=== PATIENT | female | born 1995 | race Caucasian/White ===

== ENCOUNTER 2022-08-27 06:56 | Outpatient (CLI) | payer OTHER, SELFPAY ==
[2022-08-27 07:35] VITALS: BP 112/68; PULSE 82
--- NOTE | 2022-08-27 07:50 | PC.NURSE ---
Dr. Morrison at bedside. Vertex presentation found per ultrasound. No external version done. February D/C home.
== END 2022-08-27 08:55 | disposition home or self-care (01) ==
LOC: ANHOBOP 07:03 → ANHOBPP 07:03
PROVIDERS: Visit Provider Obstetrics & Gynecology
DX: O32.1XX0 Maternal care for breech presentation, not applicable or unspecified (principal); Z3A.00 Weeks of gestation of pregnancy not specified
CPT/HCPCS: 59025; 99199

== ENCOUNTER 2022-09-08 05:42 | Inpatient (IN) | payer OTHER, SELFPAY ==
[2022-09-08] VITALS (164 sets, daily range): BP systolic 100–184; BP diastolic 45–112; PULSE 68–124; TEMP 36.2–36.6; O2SAT 97–100; BMI 42.1
--- OUTSIDE RECORDS SUMMARY | 2022-09-08 05:46 | XMS_ITS | Encounter Summary ---
:1995 Author Reason for Visit OB visit Assessment and Plan 1. Routine care 2. Transverse lie Discussion Note: None recorded.Patient educational handouts: No information available. Plan of Care Reminders Provider Appointments None recorded. ? ? Lab None recorded. ? ? Referral None recorded. ? ? Procedures None recorded. ? ? Surgeries None recorded. ? ? Imaging None recorded. ? ? Medications Name Start Date ? ? Asprin Ec Low Dose 81 mg tablet,delayed release ? Take 1 tablet every day by oral route. fluoxetine 20 mg capsule ? TAKE 1 CAPSULE BY MOUTH EVERY DAY FOR 90 DAYS 28 mg iron-800 mcg tablet ? Medications Administered None recorded. Vitals Height Weight BMI Blood Pressure 5 ft 3.75 in 237 lbs 41 kg/m2 111/72 mm[Hg] Results Lab Results None recorded. Allergies Code Code System Name Reaction Severity Onset Penicillin Angioedema Mild to Moderate ? Problems Name Status Onset Date Source ? Active 03/10/2022 ? Unstable Lie Active ? ? Polyhydramnios Active ? ? Procedures Date Name Performed by ? 10/24/2016 Extraction of [place] Tooth Information n ot available 06/30/2022 US, Obstetric, Follow-up [place] [address] [place] [address] (Work [address]) 07/14/2022 US, Obstetric, Limited [place] [address]
--- OUTSIDE RECORDS SUMMARY | 2022-09-08 05:46 | XMS_ITS | Encounter Summary ---
:1995 Author Reason for Visit None recorded. Assessment and Plan 1. Polyhydramnios ? US, obstetric, limited Discussion Note: None recorded.Patient educational handouts: No information available. Plan of Care Reminders Provider Appointments None recorded. ? ? Lab None recorded. ? ? Referral None recorded. ? ? Procedures None recorded. ? ? Surgeries None recorded. ? ? Imaging US, Obstetric, Limited 07/14/2022 Medina joiner Medications Name Start Date ? ? Asprin Ec Low Dose 81 mg tablet,delayed release ? Take 1 tablet every day by oral route. fluoxetine 20 mg capsule ? TAKE 1 CAPSULE BY MOUTH EVERY DAY FOR 90 DAYS 28 mg iron-800 mcg tablet ? Medications Administered None recorded. Vitals None recorded. Results Lab Results None recorded. Allergies Code Code System Name Reaction Severity Onset Penicillin Angioedema Mild to Moderate ? Problems Name Status Onset Date Source ? Active 03/10/2022 ? Unstable Lie Active ? ? Polyhydramnios Active ? ? Procedures Date Name Performed by ? 10/24/2016 Extraction of [place] Tooth Information n ot available 06/30/2022 US, Obstetric, Follow-up [place] [address] [place] [address] (Work [address]) 07/14/2022 US, Obstetric, Limited [place] [address] [place] [address]
--- OUTSIDE RECORDS SUMMARY | 2022-09-08 05:46 | XMS_ITS | Encounter Summary ---
:1995 Author Reason for Visit None recorded. Assessment and Plan 1. Pre-existing maternal disease compli cating ? US, obstetric, follow-up Discussion Note: None recorded.Patient educational handouts: No information available. Plan of Care Reminders Provider Appointments None recorded. ? ? Lab None recorded. ? ? Referral None recorded. ? ? Procedures None recorded. ? ? Surgeries None recorded. ? ? Imaging US, Obstetric, Follow-up 07/27/2022 Neema cordova Medications Name Start Date ? ? Asprin [...] Name Performed by ? 10/24/2016 Extraction of [place] Tooth Information n ot available 06/30/2022 , Obstetric, Follow-up [place] [address] [place] [address] (Work [address]) 07/14/2022 , Obstetric, Limited [place] [address] [place] [address]
--- OUTSIDE RECORDS SUMMARY | 2022-09-08 05:46 | XMS_ITS ---
:1995 Author Care Team Providers Name Role Phone Cindy Johns Primary Care Provider Unavailable Allergies Code Code System Name Reaction Severity Status Onset Penicillin Angioedema Mild to Moderate Active ? Medications Name Status Start Date Stop Date ? ? Asprin Ec Low Dose 81 mg tablet,delayed release Active ? Not available Take 1 tablet every day by oral route. fluoxetine 20 mg capsule Active ? Not hina ilable Microgestin 1.5/30 (21) 1.5 mg-30 mcg tablet Completed ? 02/12/2022 Take 1 tablet every day by oral route. Mirena 20 mcg/24 hours (8 yrs) 52 mg intrauterine device Complet ed 07/11/2019 02/12/2022 as directed 28 mg iron-800 mcg tablet Active ? Not available Problems Name Status Onset Date Source ? Active 03/10/2022 ? Unstable Lie Active ? ? Polyhydramnios Active ? ? Procedures Date Name Performed by ? 10/24/2016 Extraction of [place] Tooth Information n ot available 03/10/2022 US, Obstetric, Nuchal Translucency [place] [address] [place] [address] (Work [address]) 05/05/2022 US, Obstetric, 2Nd or 3Rd Trimester [place] [address] [place] [address] (Work [address]) 05/05/2022 US, Obstetric, Transvaginal [place] [address] [place] [address] ([address]) 05/06/2022 US,
--- OUTSIDE RECORDS SUMMARY | 2022-09-08 05:46 | XMS_ITS | Encounter Summary ---
:1995 Author Reason for Visit OB visit OB [id number] EDC 09/14/2022 LMP 12/07/2021 Assessment and Plan Assessment Note Patient is _31__weeks . Discuss ed plan. 1. Routine care Discussion Note: None recorded.Patient educational handouts: No [...] BMI Blood Pressure 5 ft 3.75 in 232 lbs 40.1 kg/m2 126/69 mm[Hg] Results Lab Results None recorded. Allergies Code Code System Name Reaction Severity Onset Penicillin Angioedema Mild to Moderate ? Problems Name Status Onset Date Source ? Active 03/10/2022 ? Unstable Lie Active ? ? Polyhydramnios Active ? ? Procedures Date Name Performed by ? 10/24/2016 Extraction of [place] Tooth Information n ot available 06/30/2022 US, Obstetric, Follow-up [place] [address] [place] [address] (w
--- OUTSIDE RECORDS SUMMARY | 2022-09-08 05:46 | XMS_ITS | Encounter Summary ---
[...] recorded. ? ? Imaging US, Obstetric, Follow-up 08/18/2022 Neema cordova Medications Name Start Date ? [...] Name Performed by ? 10/24/2016 Extraction of [place] Tooth Information n ot available 07/27/2022 US, Obstetric, Follow-up [place] [address] [place] [address] ([address]) 08/18/2022 US, Obstetric, Follow-up [place] [address] [place] [address]
--- OUTSIDE RECORDS SUMMARY | 2022-09-08 05:46 | XMS_ITS | Encounter Summary ---
:1995 Author Reason for Visit None recorded. Assessment and Plan 1. screening ? US, obstetric, follow-up Discussion Note: None recorded.Patient educational handouts: No information available. Plan of Care Reminders Provider Appointments None recorded. ? ? Lab None recorded. ? ? Referral None recorded. ? ? Procedures None recorded. ? ? Surgeries None recorded. ? ? Imaging US, Obstetric, Follow-up 06/30/2022 Neema cordova Medications Name Start Date ? [...] Performed by ? 10/24/2016 Extraction of [place] Tooth Information n ot available 06/02/2022 US, Obstetric, Follow-up [place] [address] [place] [address] ([address]) 06/30/2022 US, Obstetric, Follow-up [place] [address] [place] [address]
--- OUTSIDE RECORDS SUMMARY | 2022-09-08 05:46 | XMS_ITS | Encounter Summary ---
:1995 Author Reason for Visit OB visit OB [id number] EDC 09/14/2022 LMP 12/07/2021 Assessment and Plan Assessment Note Patient is _37_weeks . Discusse d plan. 1. Routine care Discussion Note: None [...] BMI Blood Pressure 5 ft 3.75 in 242 lbs 41.9 kg/m2 111/76 mm[Hg] Results Lab Results None recorded. Allergies Code Code System Name Reaction Severity Onset Penicillin Angioedema Mild to Moderate ? Problems Name Status Onset Date Source ? Active 03/10/2022 ? Unstable Lie Active ? ? Polyhydramnios Active ? ? Procedures Date Name Performed by ? 10/24/2016 Extraction of [place] Tooth Information n ot available 07/27/2022 US, Obstetric, Follow-up [place] [address] (wor
--- OUTSIDE RECORDS SUMMARY | 2022-09-08 05:46 | XMS_ITS | Encounter Summary ---
:1995 Author Reason for Visit OB visit Assessment and Plan Assessment Note Patient is ___weeks . Discussed plan. Discussion Note: None recorded.Patient educational handouts: No [...] BMI Blood Pressure 5 ft 3.75 in 246 lbs 42.6 kg/m2 126/77 mm[Hg] Results Lab Results None recorded. Allergies Code Code System Name Reaction Severity Onset Penicillin Angioedema Mild to Moderate ? Problems Name Status Onset Date Source ? Active 03/10/2022 ? Unstable Lie Active ? ? Polyhydramnios Active ? ? Procedures Date Name Performed by ? 10/24/2016 Extraction of [place] Tooth Information n ot available 08/18/2022 US, Obstetric, Follow-up [place] [address] [place] [address] ([address]) 08/25/2022 US, Obstetric, Limited [place] [address] [place]
--- OUTSIDE RECORDS SUMMARY | 2022-09-08 05:46 | XMS_ITS | Encounter Summary ---
:1995 Author Reason for Visit OB visit OB [id number] EDC 09/14/2022 LMP 12/07/2021 Assessment and Plan Assessment Note Patient is _36__weeks . Discuss ed plan. 1. Routine care [...] Name Performed by ? 10/24/2016 Extraction of [place] Tooth Information n ot available 07/27/2022 US, Obstetric, Follow-up [place] [address] [place] [address] (wo
--- OUTSIDE RECORDS SUMMARY | 2022-09-08 05:46 | XMS_ITS | Encounter Summary ---
[...] recorded. ? ? Imaging US, Obstetric, Limited 08/25/2022 Medina joiner Medications Name Start Date ? [...] Name Performed by ? 10/24/2016 Extraction of [place] Tooth Information n ot available 07/27/2022 US, Obstetric, Follow-up [place] [address] [place] [address] ([address]) 08/18/2022 US, Obstetric, Follow-up [place] [address] [place] [address]
--- OUTSIDE RECORDS SUMMARY | 2022-09-08 05:46 | XMS_ITS | Encounter Summary ---
:1995 Author Reason for Visit OB visit OB [id number] EDC 09/14/2022 LMP 12/07/21 Assessment and Plan Assessment Note Patient is _35__weeks . Discuss ed plan. 1. Routine care [...] BMI Blood Pressure 5 ft 3.75 in 238 lbs 41.2 kg/m2 114/72 mm[Hg] Results Lab Results None recorded. Allergies Code Code System Name Reaction Severity Onset Penicillin Angioedema Mild to Moderate ? Problems Name Status Onset Date Source ? Active 03/10/2022 ? Unstable Lie Active ? ? Polyhydramnios Active ? ? Procedures Date Name Performed by ? 10/24/2016 Extraction of [place] Tooth Information n ot available 07/14/2022 US, Obstetric, Limited [place] [address] [place] [address] (Bbpr
--- OUTSIDE RECORDS SUMMARY | 2022-09-08 05:46 | XMS_ITS | Encounter Summary ---
:1995 Author Reason for Visit OB visit OB [id number] EDC 09/14/2022 LMP 12/07/2021 Assessment and Plan Assessment Note Patient is _29__weeks . Discuss ed plan. 1. Routine care [...] BMI Blood Pressure 5 ft 3.75 in 229 lbs 39.6 kg/m2 114/74 mm[Hg] Results Lab Results None recorded. Allergies Code Code System Name Reaction Severity Onset Penicillin Angioedema Mild to Moderate ? Problems Name Status Onset Date Source ? Active 03/10/2022 ? Unstable Lie Active ? ? Polyhydramnios Active ? ? Procedures Date Name Performed by ? 10/24/2016 Extraction of [place] Tooth Information n ot available 06/02/2022 US, Obstetric, Follow-up [place] [address] [place] [address] (Tn
[2022-09-08 07:37] LABS: Basophils Percent Auto 0.3 % (0.2-1.2); Eosinophils Absolute Auto 0.1 K/mm3 (0-0.3); Eosinophils Percent Auto 0.9 % (0-4.4); Hematocrit 39.1 % (37.0-47.0); Hemoglobin 12.6 g/dL (12.0-15.0); Immature Granulocyte Absolute 0.06 K/mm3 (0.00-0.031); Immature Granulocyte Percent A 0.6 % (0-0.5); Lymphocytes Percent Auto 21.7 % (18.3-44.2); Mean Corpuscular HGB Conc 32.2 g/dl (32-36); Mean Corpuscular Hemoglobin 26.8 pg (26-34); Mean Corpuscular Volume 83.2 fl (80-100); Monocytes Absolute Auto 0.6 K/mm3 (0.1-0.6); Monocytes Percent Auto 5.9 % (2.6-8.5); Neutrophils Absolute Auto 7.5 K/mm3 (1.3-6.7); Neutrophils Percent Auto 70.6 % (45.5-73.1); Platelet Count Result 215 k/mm3 (150-375); Red Cell Distribution Width 16.2 % (11.5-14.5); White Blood Count 10.6 K/mm3 (4.5-10.0)
--- NOTE | 2022-09-08 07:37 | WPDOBADMIT ---
Obstetrics - Admit Note Admission Note: record reviewed. No pertinent additions to the history and/or any subsequent changes in the physical findings that are not consistent with the expected course of the were found. IOL at 39 weeks, vertex by us, start pitocin, anticipate vaginal delivery Additions to the history and/or subsequent changes in the physical findings follow. None.
[2022-09-08] MEDS: OXYTOCIN 30 UNITS/NS 500 ML 30 UNITS/500 ML BAG IV CONT ×2 (07:44→23:54)
[2022-09-08] MEDS: LACTATED RINGERS 1,000 ML 125 ML IV CONT ×4 (07:44→17:00)
--- NOTE | 2022-09-08 10:07 | WPDANESEPPF ---
Anes - Initial Pre Proc Eval Procedure: labor epidural Date/Time: 09/08/22 10:07 Surgeon: Brionna Morrison MD Pre Op Diagnosis: labor pain Pre Op Diagnosis: iol Patient Data Age: 27 Gender: F Height: 1.57 m Weight: 104.5 kg Last Vital Signs Temp 36.2 C L 09/08/22 09:55 Pulse 77 09/08/22 10:00 BP 113/70 09/08/22 10:00 O2 Del Method Room Air 09/08/22 07:24 Allergies Allergy/AdvReac Type Severity Reaction Status Date / Time Penicillins Allergy Intermediate hives Verified 09/08/22 06:46 Home Medications Medication Instructions Recorded Confirmed Type aspirin 81 mg capsule 81 mg PO DAILY 08/27/22 09/08/22 History [id number] 1 mg 1 tablet PO DAILY 08/27/22 09/08/22 History tablet Laboratory Tests 09/08/22 09/08/22 09/08/22 06:55 06:55 06:55 WBC 10.6 K/mm3 H K/mm3 (4.5-10.0) RBC 4.70 M/mm3 M/mm3 (4.2-5.4) Hgb 12.6 g/dL g/dL (12.0-15.0) Hct 39.1 % % (37.0-47.0) MCV 83.2 fl fl (80-100) MCH 26.8 pg pg (26-34) MCHC 32.2 g/dl g/dl (32-36) RDW 16.2 % H % (11.5-14.5) Plt Count 215 k/mm3 k/mm3 (150-375) MPV 11.0 fl H fl (7.4-10.4) Immature Gran % (Auto) 0.6 % H % (0-0.5) Neut % (Auto) 70.6 % % (45.5-73.1) Lymph % (Auto) 21.7 % % (18.3-44.2) [place] % (Auto) 5.9 % % (2.6-8.5) Eos % (Auto) 0.9 % % (0-4.4) Baso % (Auto) 0.3 % % (0.2-1.2) Lymph # (Auto) 2.30 K/mm3 K/mm3 (0.9-3.2) [place] # (Auto) 0.6 K/mm3 K/mm3 (0.1-0.6) Eos # (Auto) 0.1 K/mm3 K/mm3 (0-0.3) Baso # (Auto) 0.0 K/mm3 K/mm3 (0.0-0.1) Abs Immat Gran (auto) 0.06 K/mm3 H K/mm3 (0.00-0.031) Absolute Neuts (auto) 7.5 K/mm3 H K/mm3 (1.3-6.7) Absolute Nucleated RBC 0.0 K/mm3 K/mm3 (0.0-0.012) Nucleated RBC % 0.0 % % (0.0-0.2) RPR Pending Blood Type A Positive Antibody Screen Negative Patient hx anesthesia problems: none Family hx anesthesia problems: none Results Review: All pre-operative results and documents have been reviewed as part of the pre-operative evaluation. [facility] Social History Social History Smoking status: Never smoker Second hand tobacco smoke exposure: No Lack of Transportation: No Lack of Food: Never True Current Housing: I Have Housing Concerned About Future Housing: No Difficulty Paying Gas/Electric Bills: No Difficulty Paying for Meds: No Currently Unemployed: No Education: High School Diploma/GED Difficulty w/ Childcare or Family Care: No Spiritual care concerns: No Anes - Eval Final PreProcedure Day of Procedure 09/08/22 10:07 Patient weight: morbidly obese ASA classification: III Anesthetic plan: proceed Anesthesia type and monitoring: regional epidural and standard monitoring Results Review: All pre-operative results and documents have been reviewed as part of the pre-operative evaluation. Informed Consent: The patient's anesthetic plan and its attendant risks and benefits were discussed with the patient/family/POA. Questions were solicited and answers provided to the satisfaction of the patient/family/POA.
--- NOTE | 2022-09-08 12:12 | PM.OBPNLAB ---
Pain Control Date/time seen: 09/08/22 12:12 Comments: SVE /-2 AROM large amount of clear odorless fluid
[2022-09-08 15:31] LABS: Rapid Plasma Reagin Non-Reactive (NonReactive)
[2022-09-08] MEDS: SODIUM CHLORIDE 0.9% IV 300 ML 600 ML I-UTERINE (17:00)
[2022-09-08] MEDS: ONDANSETRON INJ 4 MG/2 ML VIAL IV PUSH (17:14)
[2022-09-08] MEDS: diphenhydrAMINE HCl INJ 50 MG/ML VIAL 25 MG IV PUSH (19:06)
--- NOTE | 2022-09-08 22:23 | PM.OBPRVD ---
OB - Delivery Note Procedure Delivery date: 09/08/22 Procedure: Events: Elective Induction of Labor Induction method: Per Pitocin Protocol Delivery augmentation: Rupture of Membranes Delivery monitor: External FHT and Internal Uterine Route of delivery: Laceration Description: None Specimen: No Quantitative Blood Loss (ml): 105 Anesthesia type: Epidural Disposition: Floor Narrative: mom and baby stable and doing skin to skin Baby Date of : 09/08/22 Time of : 22:08 Weeks of gestation at delivery: 39 gender: Male Weight (pounds): 8 Weight (ounces): 5 presentation: vertex position: Right Occiput Anterior Placenta delivery description: Spontaneous Cord Vessel Description: 3 Vessels, Clamped/Cut and Delayed Cord Clamping score one minute: 9 score five minutes: 9
[2022-09-08] MEDS: IBUPROFEN 600 MG TABLET PO (23:53)
[2022-09-09] VITALS (11 sets, daily range): BP systolic 111–140; BP diastolic 63–82; PULSE 73–89; RESP 13–18; TEMP 36.1–36.9; O2SAT 98–100
[2022-09-09] MEDS: ACETAMINOPHEN 325 MG TABLET 650 MG PO (04:50)
[2022-09-09 05:06] LABS: Hematocrit 34.5 % (37.0-47.0); Hemoglobin 11.3 g/dL (12.0-15.0)
--- NOTE | 2022-09-09 08:38 | PM.OBPNVD ---
OB - PN: Subj Subjective Date/time seen: 09/09/22 08:38 Patient comments: no complaints, pain well controlled, incisional pain, tolerating diet and flatus present OB - PN: Obj Data Labs CBC & Chem 7: 09/09/22 04:44 Labs: Laboratory Results - last 24 hr 09/08/22 09/09/22 06:55 04:44 Hgb 11.3 L Hct 34.5 L RPR Non-reactive OB - PN A/P Plan day: 1 Plan: routine care Comments: No problems, routine care Time Spent With Patient Time: Total time spent is greater than 50% in coordination of care (as documented) at patient's floor/unit and/or counseling patient: Exam Const: General: comfortable, no acute distress and alert Resp: Effort & Inspection: normal respiratory effort Auscultation: no crackles, no rales and no rhonchi Cardio: Rate: regular rate Heart sounds: no click, no murmurs and no rubs GI: Inspection: non-distended GI Palp: No Tenderness to palpation present (GI) Auscultation: normal bowel sounds Other: Incision - CDI Extrem: General: normal to inspection, no pedal edema and no calf tenderness
[2022-09-09] MEDS: MULTIVIT/MIN/PREN/FOL AC/IRON TABLET 1 TAB PO (09:14)
[2022-09-09] MEDS: IBUPROFEN 600 MG TABLET PO (14:10)
--- NOTE | 2022-09-09 14:31 | PC.NURSE ---
[phone] Introductions were made, then consulted with patient to assess needs related to . Mother led the conversation with her?plans to feed?her infant and she is latching independently with no pain or discomfort. Resources provided for inpatient and outpatient services. Mother voiced understanding of information, knows when infant has a non-optimal latch, then detaches latches effectively. She voiced understanding to call if there is a request for assistance. Reported to primary RN.
--- NOTE | 2022-09-09 16:08 | PC.NURSE ---
Patient transferred to post room #276 via (W/C ). Support person present. Oriented to unit, room, information board, rooming in, admission packet and security measures. Patient verbalizes understanding.
[2022-09-10] MEDS: IBUPROFEN 600 MG TABLET PO (06:59)
--- NOTE | 2022-09-10 07:35 | PM.OBPNVD ---
OB - PN: Subj Subjective Date/time seen: 09/10/22 07:35 s/p vaginal delivery day 2 OB - PN: Obj Data Labs CBC & Chem 7: 09/09/22 04:44 OB - PN A/P Plan day: 2 Plan: routine care and discharge home Time Spent With Patient Time: Total time spent is greater than 50% in coordination of care (as documented) at patient's floor/unit and/or counseling patient: Review of Systems Review of Systems: All systems reviewed & are unremarkable except as noted in HPI and below Exam Const: General: cooperative and healthy appearing
[2022-09-10 07:55] VITALS: BP 113/52; PULSE 93; RESP 18; TEMP 36.8; O2SAT 100
[2022-09-10] MEDS: MULTIVIT/MIN/PREN/FOL AC/IRON TABLET 1 TAB PO (08:45)
[2022-09-10] MEDS: DOCUSATE SODIUM 100 MG CAPSULE PO (08:45)
--- NOTE | 2022-09-10 09:44 | PC.NURSE ---
Patient viewed the discharge video Mother & Baby Care, The First Two Weeks . Patient was given the opportunity and encouraged to ask questions. Patient verbalized understanding of information shared and has been given the mother/baby guide for home reference.
[2022-09-13 10:20] VITALS: BP 125/71; PULSE 84; RESP 20; TEMP 36.6; O2SAT 99
--- NOTE | 2022-09-14 17:45 | PM.OBDSVD ---
DS: Admitting Diagnosis Discharge Date 09/10/22 Admitting Diagnosis IOL OB - DS: Summary OB Procedures : None OB Procedures Intrapartum: Spontaneous Vag Delivery OB Procedures: : None Time Spent with Patient Time attestation: Total time spent providing and/or coordinating discharge services: Discharge Plan Discharge Attending physician on discharge: Brionna Morrison Consulting providers: Cindy Johns ; Davis Coronado Discharging Clinician: Cindy Johns Patient Disposition: Home, Self-Care Activity: pelvic rest Diet: regular Discharge Instructions: Education: Mom and Baby Guide Given to: Mother Follow-Up: Call your delivering provider's office for an appointment to be seen in: 4 Weeks Mom and baby should come to the [facility] for the follow-up appointment. Appointment Date/Time: September 13, 2022 at 11:00 am What to expect at your follow-up visit: Blood Pressure Check Physical Assessment Call [phone] if you are unable to keep your appointment time. BREAST CARE: * Wear a snug supportive bra. * For engorgement discomfort: Breast Feeding: * Apply warm moist washcloths * Express milk as needed to relieve engorgement * Wear loose clothing Bottle Feeding: * May apply ice packs * For sore nipples: * Identify correct latch-on * Apply warm moist washcloths before and after nursing * Air dry nipples after nursing * May apply Lansinoh cream to nipples EPISIOTOMY/PERINEAL CARE: * Until bleeding stops, use your barbara bottle after urinating * Change your pad frequently throughout the day * You may take sitz baths several times a day (fill your bathtub with warm water and soak for 20 minutes.) Do NOT bathe in the water * No tub baths until seen by your physician - You may shower ACTIVITY: * Rest as much as possible. * Do not exercise or lift anything heavier than your baby (such as laundry or other children.) * Avoid stairs or driving as much as possible. * Do not put anything into the vagina. No douching, tampons, or sexual activity until seen by physician. NOTIFY PHYSICIAN IF YOU HAVE ANY QUESTIONS OR IF ANY OF THE FOLLOWING SYMPTOMS OCCUR: * If your episiotomy or incision becomes red, swollen, or more painful than what you have experienced in the hospital. * If your vaginal bleeding becomes foul smelling. * If your vaginal bleeding becomes more heavy than a period or if your bleeding changes from pink to bright red. However, you may pass an occasional walnut-sized clot once or twice for the first week . * If you experience a sharp, shooting pain in you calves. * If you discover a hard, reddened area on your breast or if you experience flu-like symptoms. DIET: * Eat regular, well-balanced meals. * Drink plenty of fluids daily. If , drink to thirst. Patient Instructions: Antibiotic Form, Caring for Your Breastfed Baby (DC) Stand Alone Forms: General Discharge Information Follow-up/Referrals: Cindy Johns CNM [Certified Nurse Scheduler] - 4 Weeks Discharge Medications: New ibuprofen 600 mg Tablet 600 mg PO Q6H PRN (Reason: Cramping) Qty: 30 0RF Continued [id number] 1 mg Tablet 1 tablet PO DAILY Discontinued aspirin 81 mg Capsule 81 mg PO DAILY Date of admission: 09/08/22 05:42 Primary Care Provider: PHYSICIAN,CARROT TIER Admitting Provider: Brionna Morrison Attending physician on admission: Brionna Morrison Condition: Stable
== END 2022-09-10 10:53 | disposition home or self-care (01) | DRG 560 ==
LOC: ANHLDR 05:45 → ANHOBPP 09-09 05:00 → ANHOB2 09-09 16:13
PROVIDERS: Advanced Practice Midwife; Admitting Provider Obstetrics & Gynecology; Visit Provider Obstetrics & Gynecology
DX: O76 Abnormality in fetal heart rate and rhythm complicating labor and delivery (principal); O40.3XX0 Polyhydramnios, third trimester, not applicable or unspecified; Z3A.39 39 weeks gestation of pregnancy; Z37.0 Single live birth
CPT/HCPCS: 36415; 85014; 85018; 85025; 86592; 86850; 86900; 86901; A9270; J1200; J2405; J2590; J2795; J7030; J7120

== ENCOUNTER 2023-11-28 08:30 | Emergency (ER) | payer OTHER, SELFPAY ==
[2023-11-28 08:40] VITALS: BP 118/68; PULSE 79; RESP 20; TEMP 36.2; O2SAT 99
--- NOTE | 2023-11-28 08:58 | ED.URI ---
HPI - URI/Sore Throat General Chief Complaint: Upper Respiratory Infection Stated Complaint: Sinus Infection Time Seen by Provider: 11/28/23 08:50 Source: patient Mode of arrival: ambulatory Limitations: no limitations History of Present Illness HPI Narrative: Na is a 28-year-old female patient presenting to the clinic today with complaints of left eye drainage, itchy, and right redness this been going on for 2 weeks and a possible sinus infection that is been going on for a little over a week. She reports that she is having nasal congestion with green bloody discharge. Also reports bilateral ear pain. Denies any known fever or chills. MD elicited complaint: nasal congestion and sinus pain Related Data Home Medications Medication Instructions Recorded Confirmed [id number] 1 mg 1 tablet PO DAILY 08/27/22 09/08/22 tablet Allergies Allergy/AdvReac Type Severity Reaction Status Date / Time Penicillins AdvReac Mild hives Verified 11/28/23 08:31 Review of Systems Review of Systems: Pertinent positives per HPI. Patient denies any fever, chills, rash, headache, visual changes, dizziness, shortness of breath, chest pain, palpitations, nausea, vomiting, diarrhea, constipation, abdominal pain, or any urinary issues. PMFSH Social History Social History Smoking status: Never smoker Second hand tobacco smoke exposure: No Lack of Transportation: No Lack of Food: Never True Current Housing: I Have Housing Concerned About Future Housing: No Difficulty Paying Gas/Electric Bills: No Difficulty Paying for Meds: No Currently Unemployed: No Education: High School Diploma/GED Difficulty w/ Childcare or Family Care: No Spiritual care concerns: No Comments At the time of my signature, I reviewed and agree with the nursing past medical, surgical, social, and family history. There is no relevant family history pertinent to the patient complaint. Exam Narrative: General: Well-developed, well nourished, in no apparent distress Head: Normocephalic, atraumatic Eyes: Pupils equally round and reactive to light bilaterally, EOM intact, sclera and conjunctive clear, no discharge, lids normal Ears: TMs intact, congestion, red, ear canals clear, no drainage, grossly hearing normal. Nose: Nares patent, green nasal discharge, severe inflammation, ethmoid sinus tenderness. Mouth: Oral pharynx without lesions or masses, good dentition, MMM. Postnasal drip Neck: Supple, trachea midline, no enlargement of anterior or posterior cervical nodes, no thyroid masses or goiter palpable. Cardio: Regular rate and rhythm, s1 and s2 normal, no murmur appreciated. Resp: Clear to auscultation bilaterally, no rhonchi, rales, wheezing or rubs Course Course Emergency Course: Portions of this record may have been created with voice recognition software. Level of Care: Express Care Visit Vital Signs Vital signs: Vital Signs Temperature 36.2 C L 11/28/23 08:40 Pulse Rate 79 11/28/23 08:40 Respiratory Rate 20 11/28/23 08:40 Blood Pressure 118/68 11/28/23 08:40 Pulse Oximetry 99 11/28/23 08:40 Oxygen Delivery Room Air 11/28/23 08:40 Temperature 36.2 C L 11/28/23 08:40 Pulse Rate 79 11/28/23 08:40 Respiratory Rate 20 11/28/23 08:40 Blood Pressure 118/68 11/28/23 08:40 Pulse Oximetry 99 11/28/23 08:40 Oxygen Delivery Room Air 11/28/23 08:40 Vital signs reviewed MDM - URI/Sore Throat MDM Narrative Medical decision making narrative: At the time of visit patient is resting comfortably on the exam table. Patient appears to be nontoxic. Plan: I suspect patient has bilateral otitis media, sinusitis, and left conjunctivitis. Prescription for azithromycin, prednisone, and tobramycin eyedrops was sent to the pharmacy. Supportive measures were discussed with the patient and they voiced understanding discharge instructions and agrees to treatment plan. Re
== END 2023-11-28 09:07 | disposition home or self-care (01) ==
PROVIDERS: Emergency Provider Nurse Practitioner Family; PCP Internal Medicine Infectious Disease
DX: J32.9 Chronic sinusitis, unspecified (principal); H66.93 Otitis media, unspecified, bilateral; H10.9 Unspecified conjunctivitis; Z86.16 Personal history of COVID-19
CPT/HCPCS: 99213; G0463

== ENCOUNTER 2025-01-21 08:12 | Emergency (ER) | payer OTHER, SELFPAY ==
[2025-01-21 08:34] VITALS: BP 112/50; PULSE 93; RESP 18; TEMP 36.3; O2SAT 99
--- OUTSIDE RECORDS SUMMARY | 2025-01-21 08:39 | XMS_ITS | Clinical Summary ---
Author Organization [facility] Address [address] [place] [address] Care Team Providers Care Drill Press Operator Name Role Phone Viviana Muñoz PA-C Primary Care Provider [phone] Social History Tobacco Use Types Packs/Day Years Used Date Smoking Tobacco: Never Assessed Comments Unknown Sex and Gender Information Value Date Recorded Sex Assigned at Not on file Legal Sex Female 6:42 PM CDT Gender Identity Not on file Sexual Orientation Not on file Plan of Treatment Health Maintenance Due Date Last Done Comments Cervical Cancer Screening Pa p Smear (Age 30 to 64) Every 3 Years 1994 Annual Physical 1997 Hepatitis C 2012 DTaP, Tdap and Td Vaccines ( 1 - Tdap) 2013 Hepatitis B Vaccines (1 of 3 - 19+ 3-dose series) 2013 Cervical Cancer Screening Pa p with HPV Testing (Age 30 to 64) Every 5 Years 2024 Cervical Cancer Screening with HPV 2024 COVID-19 Vaccine ( - 2023-2 5 season) 2024 Influenza Adult (#1) 2024 HPV Vaccines Aged Out No longer eligi ble based on patient's age to complete this topic Meningococcal B Vaccine Aged Out No l onger eligible based on patient's age to complete this topic Meningococcal Vaccine Aged Out No crescencio maia eligible based on patient's age to complete this topic Pneumococcal Vaccine: Pediat rics (0 to 5 Years) and At-Risk Patients (6 to 64 Years) Aged Out No longer eligible b ased on patient's age to complete this topic RSV Immunizations Under 20 Months Aged Out No longer eligible based on patient's age to complete this topic Insurance [employer] Care Teams Drill Press Operator Relationship Specialty Start Date End Date Viviana Muñoz PA-C [address] [place] [id number] PCP - General NURSE PRACTITIONER 12/16/21
--- OUTSIDE RECORDS SUMMARY | 2025-01-21 08:39 | XMS_ITS | Clinical Summary ---
Author Organization [facility] Address [address] [place] [address] Care Team Providers Care Slunk Skinner Name Role Phone Vaibhav Kellogg APRN-APPLICATION TESTER Primary Care Provider Unavailable Source Comments [facility],non-owned Affiliates and Associated Physician Practices is amultiple site organization consisting of ambulatory clinics and hospital sitesin [place], [place], [place] and [place]. This disclosure is being madepursuant to the Care Everywhere program and may not contain all information available regarding this patient. Last updated 18.[facility] Immunizations Name Administration Dates Next Due INFLUENZA VACCINE, QUADR. (F LUZONE; FLULAVAL; FLUARIX; AFLURIA QUADRIVALENT; 6MO+), 0.5 ML (IIV4) 08/18/2021 Social History Tobacco Use Types Packs/Day Years Used Date Smoking Tobacco: Never Assessed Sex and Gender Information Value Date Recorded Sex Assigned at Not on file Gender Identity Not on file Sexual Orientation Not on file Plan of Treatment Health Maintenance Due Date Last Done Comments PAP SMEAR 1994 HIV SCREENING 2009 HEPATITIS C SCREENING 04/15/2012 DTAP/TDAP/TD VACCINES (1 - Tdap) 2013 HEPATITIS B VACCINE (1 of 3 - 19+ 3-dose series) 2013 COVID-19 VACCINE ( - 2023-2 5 season) 2024 07/17/2021, 06/19/2021 INFLUENZA VACCINE (#1) 2024 08/18/2021 DEPRESSION SCREENING 10/24/2024 ZOSTER VACCINE (1 of 2) 2044 HIB VACCINE Aged Out No longer eligi ble based on patient's age to complete this topic HPV VACCINE Aged Out No longer eligi ble based on patient's age to complete this topic MENINGOCOCCAL (Group B) VACCINE SHARED DECISION-MAKING Aged Out No longer eligible based on patient's age to complete this topic MENINGOCOCCAL GROUPS A/C/Y/W VACCINE Aged Out No longer eligible b ased on patient's age to complete this topic PNEUMOCOCCAL VACCINE Aged Out No long er eligible based on patient's age to complete this topic Care Teams Slunk Skinner Relationship Specialty Start Date End Date Vaibhav Kellogg, [employer]ATION CREW MEMBER-APPLICATION TESTER PCP - General Anesthesiology 08/18/21
--- OUTSIDE RECORDS SUMMARY | 2025-01-21 08:39 | XMS_ITS | Data Portability ---
Author Organization [facility], Main Office Address [address] [place] [address] Care Team Providers Care Terminal Superintendent Name Role Phone SARAH MENON Primary Care Provider Assessment No assessment recorded. Plan of Treatment Reminders Order Date Submit Date Provider Last Modified By Organization Details Last Modified Time Details Appointments None recorded. Lab None recorded. Referral None recorded. Procedures None recorded. Surgeries None recorded. Imaging None recorded. Medication Orders prednisone 20 mg tablet 2023 024 [email or web address] [id number], [address] [place] [address], [address], 08:47:04 Patient TargetsNo targets recorded. Patient Instructions Encounter Date Encounter Id Patient Instructions Last Modified By Organization Details Last Modified Time 09/18/2024 [id number] discussed findings of middle ear fluid present to the left ear. Prescribed prednisone to be taken daily for 5 days for Eustachian tube dysfunction. Discussed side effects such as increased thirst, increased appetite, increased urination, and insomnia While taking this medication. MRI of her IAC's ordered in addition an audiogram and tympanogram are to be completed. We will follow-up when results become available. [email or web address] Not available 09/18/2024 12:39:08 12/20/2024 [id number] the evaluation i s normal the patient will be seen as needed [email or web address] Not available 12/20/2024 11:09:14 Reason for Referral None Reported. Results Created Date Observation Date Name Description Value Unit Range Abnormal Flag Note LastModifiedBy Organization Detail LastModifiedTime 11/19/1911/19/2024 audio gram + tympa nogra m No observ ation record ed. [email or web address] [facility] [address], [place], [address], 11/26/2024 15:43:09 11/23/19 25 11/23/2024 audio gram + tympa nogra m No observ ation record ed. [email or web address] [facility] [address], [place], [address], 11/26/2024 15:42:56 12/05/19 25 11/15/2024 MRI, inter nal audit ory canal , w/wo contr ast No observ ation record ed. [address], [place], [address], 12/10/2024 10:53:21 12/14/19 25 12/14/2024 MRI, inter nal audit ory canal , w/wo contr ast No observ ation record ed. [facility] [address], [place], [address], 12/14/2024 13:04:36 Result Notes None recorded. Problems Name Problem SNOMED Code Status Onset Date Resolution Date Notes Provider Name and Address Organization Details Recorded Time Asymmetrica l sensorineur al hearing loss 958040438 Active 2023 Gwendolyn Johnson RN [facility], [employer] 4 12:33:13 Dysfunction of left eustachian tube 5873109054822 106 Active 2023 NÉSTOR Mckeon [address], [place], [address], [employer] 4 12:37:24 Asymmetrica l hearing loss 476436600 Active 2023 NÉSTOR Mckeon [address], [place], [address], [employer] [facility] [email or web address] [facility] 4 12:37:37 Subjective pulsatile tinnitus of right ear 4854063337403 108 Active 2024 Devan Madrigal MD [address], [place], [address], [facility] [employer] [facility] 11:09:04 Problem Notes None recorded. Procedures Surgical History None recorded. Imaging Results Imaging Date Name Status LastModified by Organiz ation Details LastModified Time 11/19/2024 audiogram + tympanogram completed [address] [facility] [address], [place], [address], 11/26/2024 15:43:09 11/23/2024 audiogram + tympanogram completed [address] [facility] [address], [place], [address], 11/26/2024 15:42:56 11/15/2024 MRI, internal auditory canal, w/wo contrast completed [address], [place], [address], 12/10/2024 10:53:21 12/14/2024 MRI, internal auditory canal, w/wo contrast completed [facility] [address], [place], [address], 12/14/2024 13:04:36 Procedure Notes None recorded. Medical Equipment None Reported. Allergies Allergen ID Allergen Name Allergen Category Reaction Reaction Severity Criticality Documentation Date Start Date Code Code System Note Provider Name and Address Organization Details Recorded Time 29498 Product containin g penicilli n (product) medicatio n Not available Not available Not available 09/18/2024 85511 8001 SNOMED Gwendolyn Johnson RN null, [place] [employer] [facility] 12:14:07 Medications Name Sig Start Date Stop Date Status Note LastModified by Organization Details LastModified Time azithromyci n 250 mg tablet TAKE 2 TABLETS BY MOUTH TODAY, THEN TAKE 1 TABLET DAILY FOR 4 DAYS DIRECTED 09/18 completed Not Available Not Available Not Available prednisone 20 mg tablet Take 2 tablets every day by oral route for 5 days. 12/20 completed Not Available Not Available Not Available tobramycin 0.3 % eye drops PUT 1 DROP INTO LEFT EYE EVERY 4 HOURS FOR 7 DAYS 09/18 completed Not Available Not Available Not Available Vitals Date Recorded Body height Body mass index (BMI) Body weight Body temperature Provider Name and Address Organization Details Last Updated DateTime 09/18/2024 160.02 cm 37.1 kg/m2 03889.52 g 98 [degF] Gwendolyn Johnson RN [facility] [employer] [facility] 09/18/2024 12:14:56 Date Recorded Body height Body mass index (BMI) Body weight Body temperature Provider Name and Address Organization Details Last Updated DateTime 12/20/2024 160.02 cm 36.7 kg/m2 02314.62 g 97.6 [degF] Gwendolyn Johnson RN [facility] [employer] [facility] 12/20/2024 11:04:28 Social History Question Answer Notes LastModified by Organizat ion Details LastModified Time Tobacco Smoking Status Never Smoker Gwendolyn Johnson RN null, [facility] [employer] [facility] 09/18/2024 12:13:43 What Is Your Level Of Alcohol Consumption? None [email or web address] Information not available 09/18/2024 Sex: Unknown Functional Status None recorded. Mental Status None recorded. Family History Nothing Reported Notes:COUSINS: MYRINGOTOMY W ITH TUBE PLACEMENTS Medical History Condition Response NO SIGNIFICANT PAST MEDICAL HISTORY Y Gynecological HistoryNo gynecological history recorded. Obstetrics History GPAL:G 0 P 0 0 0 0 Past Encounters Encounter ID Performer Location Encounter Start Date Encounter Closed Date Diagnosis/Indication Diagnosis SNOMED-CT Code Diagnosis ICD10 Code Diagnosis Note [id number] NÉSTOR Mckeon [facility] [place] [address] [place] [address] 09/18/2024 12:06:18 09/18/2024 12:39:43 Asymmetrical hearing loss 554275931 H91.92 Dysfunctio n of left eustachian tube 6636303055 000330 H69.92 [id number] Devan Madrigal MD [facility] [place] [address] [place] [address] 12/20/2024 11:00:30 12/21/2024 13:31:07 Subjective pulsatile tinnitus of right ear 8483190095 310439 H93.A1 Health Concerns Section Related Observation LastModified by Organization Detai ls LastModified Time None Recorded Concern Status LastModified by Organization Details LastModified Time None Recorded Advance Directives Directive None Recorded Payers Encounter Date Sequence Insurance Name Policy Number Policy [place] Covered Member ID [place] Member ID Guarantor Name 09/18/2024 1 [facility] - DOS ON OR AFTER 21 (MEDICAID REPLACEMENT - HMO) Na Dunlap [id number] Na Dunlap 12/20/2024 1 [facility] - DOS ON OR AFTER 21 (MEDICAID REPLACEMENT - HMO) Na Dunlap [id number] Na Contrerasffman Notes Date Note Type Note Provider Name and Address Organization Details Recorded Time 09/18/2024 text/html This patient has no significant past medical history. She presents to the office with a complaint of decreased hearing and left ear something sound that began around January of 2024. She states that her symptoms are intermittent but have recently become more prominent. She describes the symptoms as if her left ear is pulsating with sound. She denies any recent illnesses. She has not had any recent imaging or audiogram completed. She has not used anything [id number] to alleviate symptoms. NÉSTOR Mckeon [address] [facility], [place], [address], [employer] 09/18/2024 12:39:12 12/20/2024 text/html this patient had pulsatile tinnitus. Her audiogram was normal as was her MRI Devan Madrigal MD [address], [place], [address], [employer] 12/20/2024 11:09:38 OBGyn Episode No OBEpisode recorded.
--- OUTSIDE RECORDS SUMMARY | 2025-01-21 08:39 | XMS_ITS | Data Portability ---
Author Organization [facility] Address [address] [place] [address] [place] [address] Assessment Encounter Date Assessment Date Assessment LastModified by Organization Details LastModified Time 10/08/2022 10/08/2022 normal pp visit, f/u wwe in january 2023 Not available 10/08/2022 12:14:39 02/23/2023 02/23/2023 Annual gynecological exam performed. Suggest Calcium with Vitamin D if not eating in diet. Patient advised to get annual flu shot. Recommend yearly physicals and preform monthly breast exams. Genetic testing is available for patients with family history of cancer. Engage in safe sexual practices, use condoms. Encouraged to have daily exercise. Avoid tobacco and illicit drugs, moderation of alcohol. If BMI greater than 25 dietary consult advised. If you have any questions please call or email. Not available 02/23/2023 14:21:11 Plan of Treatment Reminders Order Date Submit Date Provider Last Modified By Organization Details Last Modified Time Details Appointments None recorded. Lab test, urine 2022 023 [email or web address] [address], [address], [place], [address], 11:34:55 Referral None recorded. Procedures None recorded. Surgeries None recorded. Imaging None recorded. Medication Orders Mirena 21 mcg/24 hr (up to 8 years) 52 mg intrauterin e device 2022 023 [email or web address] Not available 11:35:23 Patient TargetsNo targets recorded. Patient InstructionsNo instructions recorded. Reason for Referral None Reported. Results Created Date Observation Date Name Description Value Unit Range Abnormal Flag Note LastModifiedBy Organization Detail LastModifiedTime 08/13/20 22 08/13/2022 CULTU RE: GROUP B STREP SCREE N, REFLE X SUSCE PTIBI LITY result report SEE RESULT S BELOW Test: Cultu re: Group B Strep , Refle x Susce ptibi lity ([facility]/ [facility]/K [facility] ) Speci men Sourc e: Vagin a/Rec edelmira Speci men Type: Vagin al/Re ctal Speci men Date: 08/13 2:29 PM Resul t Date: 08/16 2:00 PM Resul t Statu s: Final resul t Abnor mal: No Resul ting Lab: [facility] [address] [facility] [address] Tel: CULTU RE ----- ----- ----- --- No Group B strep isola brian at 2 days (violet ctive broth enhan cemen t) Not Available [facility] [address] [place], [address], 08/16/2022 15:03:29 02/24/20 23 02/23/2023 CBC W/DIF F WBC 8.7 10'3/ uL 3.6-10 .2 Not Available [facility] (Lab) [address] [place], [address], 02/24/2023 10:20:25 02/24/20 23 02/23/2023 CBC W/DIF F RBC 5.05 10'6/ uL (based on docume nted legal sex) 4.10-5 .30 Not Available [facility] (Lab) [address] [place], [address], 02/24/2023 10:20:25 02/24/20 23 02/23/2023 CBC W/DIF F HGB 14.0 g/dL (based on docume nted legal sex) 11.9-1 5.8 Not Available [facility] (Lab) [address] [facility], [place], [address], 02/24/2023 10:20:25 02/24/20 23 02/23/2023 CBC W/DIF F HCT 42.1 % (based on docume nted legal sex) 37.4-4 8.3 Not Available [facility] (Lab) [address] [facility], [place], [address], 02/24/2023 10:20:25 02/24/20 23 02/23/2023 CBC W/DIF F MCV 83.4 fL 82.0-9 9.0 Not Available [facility] (Lab) [address] [facility], [place], [address], 02/24/2023 10:20:25 02/24/20 23 02/23/2023 CBC W/DIF F MCH 27.7 pg 27.0-3 3.0 Not Available [facility] (Lab) [address] [facility], [place], [address], 02/24/2023 10:20:25 02/24/20 23 02/23/2023 CBC W/DIF F MCHC 33.3 g/dL 32.0-3 6.0 Not Available [facility] (Lab) [address] [facility], [place], [address], 02/24/2023 10:20:25 02/24/20 23 02/23/2023 CBC W/DIF F RDW 13.9 % 11.0-1 5.0 Not Available [facility] (Lab) [address] [facility], [place], [address], 02/24/2023 10:20:25 02/24/20 23 02/23/2023 CBC W/DIF F plt 371 10'3/ uL 150-45 0 Not Available [facility] (Lab) [address] [facility], [place], [address], 02/24/2023 10:20:25 02/24/20 23 02/23/2023 CBC W/DIF F MPV 10.9 fL 9.8-12 .7 Not Available [facility] (Lab) [address] [facility], [place], [address], 02/24/2023 10:20:25 02/24/20 23 02/23/2023 CBC W/DIF F NRBC's 0.0 % 0 Not Available [facility] (Lab) [address] [facility], [place], [address], 02/24/2023 10:20:25 02/24/20 23 02/23/2023 CBC W/DIF F absolute NRBCs 0.0 10'3/ uL 0 Not Available [facility] (Lab) [address] [facility], [place], [address], 02/24/2023 10:20:25 02/24/20 23 02/23/2023 CBC W/DIF F neutrophils 63.5 % 37.0-7 2.0 Not Available [facility] (Lab) [address] [facility], [place], [address], 02/24/2023 10:20:25 02/24/20 23 02/23/2023 CBC W/DIF F lymphocytes 30.7 % 16.0-4 8.0 Not Available [facility] (Lab) [address] [facility], [place], [address], 02/24/2023 10:20:25 02/24/20 23 02/23/2023 CBC W/DIF F monocytes 4.3 % 4.0-14 .0 Not Available [facility] (Lab) [address] [facility], [place], [address], 02/24/2023 10:20:25 02/24/20 23 02/23/2023 CBC W/DIF F eosinophils 1.1 % 0.0-9. 0 Not Available [facility] (Lab) [address] [facility], [place], [address], 02/24/2023 10:20:25 02/24/20 23 02/23/2023 CBC W/DIF F basophils 0.3 % 0.0-2. 0 Not Available [facility] (Lab) [address] [facility], [place], [address], 02/24/2023 10:20:25 02/24/20 23 02/23/2023 CBC W/DIF F immature granulocytes 0.1 % no define d refere nce range Not Available [facility] (Lab) [address] [facility], [place], [address], 02/24/2023 10:20:25 02/24/20 23 02/23/2023 CBC W/DIF F absolute neutrophils 5.5 10'3/ uL 1.1-6. 0 Not Available [facility] (Lab) [address] [facility], [place], [address], 02/24/2023 10:20:25 02/24/20 23 02/23/2023 CBC W/DIF F absolute lymphocytes 2.7 10'3/ uL 0.7-3. 4 Not Available [facility] (Lab) [address] [facility], [place], [address], 02/24/2023 10:20:25 02/24/20 23 02/23/2023 CBC W/DIF F absolute monocytes 0.4 10'3/ uL 0.3-1. 0 Not Available [facility] (Lab) [address] [facility], [place], [address], 02/24/2023 10:20:25 02/24/20 23 02/23/2023 CBC W/DIF F absolute eosinophils 0.1 10'3/ uL 0.0-0. 6 Not Available [facility] (Lab) [address] [place], [address], 02/24/2023 10:20:25 02/24/20 23 02/23/2023 CBC W/DIF F absolute basophils 0.0 10'3/ uL 0.0-0. 1 Not Available [facility] (Lab) [address] [place], [address], 02/24/2023 10:20:25 02/24/20 23 02/23/2023 CBC W/DIF F absolute immature granulocytes 0.0 10'3/ uL 0.00-0 .10 023 8:31 AM: P indic ates parti al resul ts on a panel have been relea sed. Addit ional resul ts will follo w. 023 8:31 AM: This resul t has been final verif ied. No addit ional or joshi ed resul ts are expec brian. Not Available [facility] (Lab) [address] [facility], [place], [address], 02/24/2023 10:20:25 02/24/20 23 02/23/2023 TSH TSH 0.51 uIU/m L 0.30-5 .33 Not Available [facility] (Lab) [address] [place], [address], 02/24/2023 10:20:25 02/24/20 23 02/23/2023 T4 FREE T4, free 0.87 NG/dL 0.60-1 .40 Not Available [facility] (Lab) [address] [place], [address], 02/24/2023 10:20:26 02/24/20 23 02/23/2023 VITAM IN B12 vitamin B12 590 pg/mL 180-91 4 Lorena l Range : 180-9 14 pg/mL . Indet ermin ate Range : 145-1 80 pg/mL . Defic ient Range : <=145 pg/mL . Not Available [facility] (Lab) [address] [facility], [place], [address], 02/24/2023 10:20:26 02/24/20 23 02/23/2023 VITAM IN D, 25-OH (TOTA L D2/D3 ) vitamin D, 25-hydroxy, total 23.3 NG/mL 30.0-1 00.0 low Sugge stive of Defic iency : <20 ng/mL Sugge stive of Insuf ficie ncy: 20-29 ng/mL Sugge stive of Suffi cienc y: 30-10 0 ng/mL Sugge stive of Toxic ity: >150 ng/mL Not Available [facility] (Lab) [address], [place], [address], 02/24/2023 10:20:27 08/30/20 23 08/30/2023 pregn patrick test, urine HCG negati ve Not Available [address], [place], [address], 08/30/2023 11:31:40 08/18/20 22 08/18/2022 US, obste tric, follo w-up No observ ation record ed. [email or web address] [address], [place], [address], 08/18/2022 13:43:15 08/18/20 22 08/18/2022 US, obste tric, follo w-up No observ ation record ed. [email or web address] [address], [place], [address], 08/19/2022 10:50:46 08/25/20 22 08/25/2022 US, obste tric, follo w-up No observ ation record ed. [email or web address] [address], [place], [address], 05/19/2023 10:44:49 08/25/20 22 08/25/2022 US, obste tric, limit ed No observ ation record ed. [email or web address] [address], [place], [address], 08/25/2022 12:18:07 08/30/20 22 08/30/2022 US, obste tric, follo w-up No observ ation record ed. [email or web address] [address], [place], [address], 05/19/2023 10:44:50 Result Notes None recorded. Problems Name Problem SNOMED Code Status Onset Date Resolution Date Notes Provider Name and Address Organization Details Recorded Time COVID-19 743540526 Completed 2021 ASA & serial growth Johanna Davis [facility], [facility] 3 15:49:32 Polyhydram nios 55158499 Completed MIKAELA was 28, at 33w 25 Johanna Davis [facility], [facility] 3 15:49:32 Unstable lie [id number] [facility] 15:49:32 Problem Notes None recorded. Procedures Surgical History Date Name Laterality Status Provider Name and Address Organization Details Recorded Time 08/30/20 23 IUD Insertion completed PATRICIA Anne [address], [place], [address], [facility] 08/30/2023 12:15:13 02/24/20 23 Date of Last Pap Smear completed Samantha Mary [facility] 02/23/2023 14:08:00 06/03/20 20 IUD Removal completed Cindy Johns CNM [address], [place], [address], [facility] 06/03/2020 16:14:03 10/24/19 17 extraction of wisdom tooth completed Samantha Mary [facility] 06/03/2020 20:09:26 Imaging Results Imaging Date Name Status LastModified by Organiz ation Details LastModified Time 08/18/2022 US, obstetric, follow-up completed [email or web address] [address], [place], [address], 08/18/2022 13:43:15 08/18/2022 US, obstetric, follow-up completed [email or web address] [address], [place], [address], 08/19/2022 10:50:46 08/25/2022 US, obstetric, follow-up completed [email or web address] [address], [place], [address], 05/19/2023 10:44:49 08/25/2022 US, obstetric, limited completed [email or web address] [place] [address], [place], [address], 08/25/2022 12:18:07 08/30/2022 US, obstetric, follow-up completed [email or web address] [address], [place], [address], 05/19/2023 10:44:50 Procedure Notes None recorded. Medical Equipment None Reported. Allergies Allergen ID Allergen Name Allergen Category Reaction Reaction Severity Criticality Documentation Date Start Date Code Code System Note Provider Name and Address Organization Details Recorded Time 03970 Penicilli n Not available angioedem a moderate Not available 02/12/2022 57868 RxNorm Samantha calvillo, [facility] 14:46:29 Medications Name Sig Start Date Stop Date Status Note LastModified by Organization Details LastModified Time Mirena 21 mcg/24 hr (up to 8 years) 52 mg intrauter ine device Insert 1 device by intraute rine route 2022 active Not Available Not Available Not Avai lable ergocalci ferol (vitamin D2) 1,250 mcg (50,000 unit) capsule TAKE 1 CAPSULE WEEKLY AND THEN REPEAT LAB WORK active Not Available Not Available No t Available fluoxetin e 20 mg capsule TAKE 1 CAPSULE BY MOUTH EVERY DAY FOR 90 DAYS 02/23 completed Not Available Not Available Not Available Asprin Ec Low Dose 81 mg tablet,de layed release Take 1 tablet every day by oral route. 10/08 completed Not Available Not Available Not Available Microgest in 1.5/30 (21) 1.5 mg-30 mcg tablet Take 1 tablet every day by oral route. 02/12 completed Not Available Not Available Not Available 28 mg iron-800 mcg tablet 02/23 completed Prescrib davidson Mcclellan e: Yes Loca tion: [facility] Cierra russ By: effie Cabrera r DateTime : 01/16/20 01:00:00 PM Not Available Not Available Not Available Vitals Date Recorded Body height Body mass index (BMI) Systolic blood pressure Diastolic blood pressure Provider Name and Address Organization Details Last Updated DateTime 08/30/2022 161.93 cm 42.6 kg/m2 126 mm[Hg] 77 mm[Hg] Dejah Herrera [facility] 08/30/2022 09:57:20 Date Recorded Body weight Provider Name an d Address Organization Details Last Updated DateTime 08/30/2022 295004.72708 g Asuncion Watts MD [address], [place], [address], [facility] 09/06/2022 09:38:31 Date Recorded Body height Body mass index (BMI) Systolic blood pressure Diastolic blood pressure Provider Name and Address Organization Details Last Updated DateTime 10/08/2022 161.93 cm 37.2 kg/m2 113 mm[Hg] 74 mm[Hg] Samantha Mary [facility] 10/08/2022 11:47:25 Date Recorded Body weight Provider Name an d Address Organization Details Last Updated DateTime 10/08/2022 75389.89353 g Johanna Davis [facility] 02/11/2023 15:49:36 Date Recorded Body height Body mass index (BMI) Body weight Systolic blood pressure Diastolic blood pressure Provider Name and Address Organization Details Last Updated DateTime 02/23/2023 161.93 cm 36.8 kg/m2 11192.17 g 124 mm[Hg] 82 mm[Hg] Samantha Mary [facility] 14:07:31 Date Recorded Body height Body mass index (BMI) Body weight Systolic blood pressure Diastolic blood pressure Provider Name and Address Organization Details Last Updated DateTime 08/05/2023 161.93 cm 39.2 kg/m2 540339.7 5 g 105 mm[Hg] 70 mm[Hg] Vale Emily [facility] 3 10:03:05 Date Recorded Body height Body mass index (BMI) Body weight Systolic blood pressure Diastolic blood pressure Provider Name and Address Organization Details Last Updated DateTime 08/30/2023 161.93 cm 39.5 kg/m2 979813.7 8 g 114 mm[Hg] 71 mm[Hg] Vale Emily [facility] 3 11:30:13 Social History Question Answer Notes LastModified by Organizat ion Details LastModified Time Tobacco Smoking Status Unknown If Ever Smoked Samantha calvillo [facility] 08/18/2022 14:49:05 Do You Have An Advance Directive? No [email or web address] Information not available 02/12/2022 What Is Your Level Of Alcohol Consumption? Occasional [email or web address] Information not available 02/12/2022 How Many Years Have You Consumed Alcohol? 6 Information not available 02/12/2022 Are You Blind Or Do You Have Difficulty Seeing? No [email or web address] Information not available 02/12/2022 What Is Your Level Of Caffeine Consumption? Moderate [email or web address] Information not available 02/12/2022 How Much Tobacco Do You Chew? None [email or web address] Information not available 02/12/2022 In The 14 Days Before Symptom Onset, Have You Had Close Contact With A Laboratory-confir med COVID-19 While That Case Was Ill? No Information not available 02/12/2022 In The 14 Days Before Symptom Onset, Have You Had Close Contact With A Person Who Is Under Investigation For COVID-19 While That Person Was Ill? No Information not available 02/12/2022 Have You Been To An Area Known To Be High Risk For COVID-19? No [email or web address] Information not available 02/12/2022 Are You Deaf Or Do You Have Serious Difficulty Hearing? No Information not available 02/12/2022 What Type Of Diet Are You Following? REGULAR [email or web address] Information not available 02/12/2022 What Is The Highest Grade Or Level Of School You Have Completed Or The Highest Degree You Have Received? 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 No Information not available 02/12/2022 Do You Use Protection During Sex? Usually [email or web address] Information not available 02/12/2022 Do You Use Your Seat Belt Or Car Seat Routinely? Yes [email or web address] Information not available 02/12/2022 Do You Have Smoke And Carbon Monoxide Detectors In Your Home? Yes [email or web address] Information not available 02/12/2022 At What Age Did You Start Smoking Tobacco? 0 [email or web address] Information not available 02/12/2022 How Much Tobacco Do You Smoke? No Information not available 02/12/2022 Do You Feel Stressed (tense, Restless, Nervous, Or Anxious, Or Unable To Sleep At Night)? [id number] [email or web address] Information not available 02/12/2022 Do You Use Any Illicit Or Recreational Drugs? No [email or web address] Information not available 02/12/2022 Do You Use Sunscreen Routinely? Yes [email or web address] Information not available 02/12/2022 How Many Years Have You Smoked Tobacco? 0 [email or web address] Information not available 02/12/2022 Have You Used IV Drugs? No Information not available 02/12/2022 Sex: Unknown Functional Status Question Answer Note LastModified by Organizat ion Details LastModified Time Do you have difficulty walking or climbing stairs? No [email or web address] Information not available 06/30/2022 Are you able to walk? YESWOREST [email or web address] Information not available 02/12/2022 Are you able to care for yourself? Yes [email or web address] Information not available 06/30/2022 Do you have difficulty dressing or bathing? No [email or web address] Information not available 06/30/2022 What is your exercise level? None [email or web address] Information not available 02/12/2022 Mental Status None recorded. Family History Relationship Description Onset Age of this Age Resolved Age Notes LastModified by Organization Details LastModified Time Maternal Grandmother Hypertensive disorder [email or web address] Not available 06/03 20:07:27 Maternal Grandmother Hypercholest erolemia [email or web address] Not available 06/03 20:09:12 Paternal Grandfather Hypertensive disorder [email or web address] Not available 06/03 20:07:27 Paternal Grandfather Hypercholest erolemia [email or web address] Not available 06/03 20:09:12 Brother Autistic disorder [email or web address] Not available 2021 14:52:05 Father Psychiatric symptom [email or web address] Not available 2021 14:52:05 Father Anxiety disorder [email or web address] Not available 06/03 20:08:18 Father Depressive disorder Not available 06/03 20:08:29 Mother Psychiatric symptom [email or web address] Not available 2021 14:52:05 Mother Anxiety disorder [email or web address] Not available 06/03 20:08:18 Mother Depressive disorder [email or web address] Not available 06/03 20:08:29 Maternal Aunt Female infertility [email or web address] Not available 04/2022 14:52:05 Maternal Aunt Malignant tumor of cervix [email or web address] Not available 06/03 20:08:54 Medical History Condition Response Allergies (Food, seasonal, environmental ) N Other N Breast Cancer N Drug/Latex Allergies/Reactions Y Blood Transfusion N Dermatologic Disorders N Lung Disease N Defects or Inherited Disease N Breast Problem N Gestational Diabetes N Hematologic disorders N Anesthesia Complications N History of STI N Deep Vein Thrombosis N Polycystic ovary syndrome N Anxiety Disorder Y Autoimmune disease N Arthritis N Infertility N Polyps N Acid Reflux (GERD) N History of abnormal pap N Cancer N Stroke N Varicosities N Neurologic/Epilepsy N Endometriosis N High Cholesterol N Headaches N Fibromyalgia N Kidney Disease N Heart Problems N Kidney or Bladder Problems N Thyroid Problems N GI Problems N Eating Disorder N Anemia N Art (IVF or FET) N Psychiatric Illness N Ovarian Cancer N Diabetes N Pulmonary (TB, Asthma) N Hepatitis/Liver Disease N No Past Medical History N Eczema N Urinary Tract Infection N Abuse/Domestic Violence N Asthma N Trauma/Violence N Depression/ depression Y Heart Disease N Pre-Eclampsia N Hypertension N Osteoporosis N Thrombophilias N Gynecological History Statement/Question Response Date of LMP 07/30/2023 On BCP's at Conception? N N Was last menstrual period normal Y STIs/STDs N HPV Vaccine Y Duration of Flow (days) 3 Current Control Method IUD Age at First Child 17 Frequency of Cycle (Q days) 27 Sexually Active? Y Menses Monthly Y Age of first menstrual cycle 13 Date of Last Pap Smear 02/23/2023 Sexual Problems? N LMP Approximate N Obstetrics History GPAL:G 4 P 4 0 0 4 Type Value Full Term 4 Living 4 Total 4 Past Encounters Encounter ID Performer Location Encounter Start Date Encounter Closed Date Diagnosis/Indication Diagnosis SNOMED-CT Code Diagnosis ICD10 Code Diagnosis Note [id number] [address] [place] [address] 06/03/2020 15:28:44 06/03/2020 16:43:04 IUD removal awaited 549001954 Z30.432 Surveillan ce of oral contraception 153944853 Z30.41 [id number] [facility] [address] [address] 02/12/2022 13:52:13 02/12/2022 15:23:28 Gynecologic examination 85432998 Z01.419 Amenorrhea 56907837 N91. 2 [id number] Chrissy Friedman [facility] [address] [address] 02/12/2022 13:51:04 02/12/2022 14:05:44 [id number] Kierra Alejandra [facility] [address] [address] 03/10/2022 16:25:45 03/11/2022 11:07:50 screening 173866232 Z36.82 [id number] Damion Morrison MD [facility] [address] [place] [address] 03/10/2022 16:26:51 03/10/2022 18:51:19 Routine care 822921875 Z34.81 [id number] [facility] [address] [place] [address] 04/02/2022 15:56:09 04/02/2022 16:26:23 Routine care 592703524 Z34.90 [id number] Chrissy Friedman [facility] [address] [address] 05/05/2022 16:52:39 05/05/2022 18:01:08 screening 049872201 Z36.3 [id number] Cindy Johns [facility] [address] [address] 05/05/2022 17:01:27 05/06/2022 16:36:41 Routine care 379780080 Z34.90 [id number] [facility] [address],[place] [address] 06/02/2022 11:51:02 06/02/2022 12:44:11 screening 776291522 Z36.2 [id number] Cindy Johns [facility] [address],[place] [address] 06/02/2022 11:51:19 06/02/2022 13:58:17 Routine care 390705909 Z34.90 [id number] [facility] [address] [address] 06/30/2022 14:51:31 06/30/2022 17:32:20 screening 480707202 Z36.2 U07.1 [id number] Cindy Johns [facility] [address],[place] [address] 06/30/2022 14:52:01 06/30/2022 17:31:31 Routine care 940673000 Z34.90 [id number] Chrissy Friedman [facility] [address] [address] 07/14/2022 16:20:02 07/14/2022 17:48:03 Polyhydramnios 15131989 O40.3XX0 Z3A.31 [id number] Cindy Johns [facility] [address],[place] [address] 07/14/2022 16:20:22 07/14/2022 18:39:15 Routine care 419372665 Z34.90 [id number] Chrissy Friedman [facility] [address] [address] 07/27/2022 15:24:47 07/27/2022 16:56:42 Pre-existing maternal disease complicating 1689388974 6106 O99.891 U07.1 Z86.16 Z3A.33 [id number] Asuncion Watts MD [facility] [address] [address] 07/27/2022 15:25:26 07/27/2022 16:57:01 Routine care 757047786 Z34.83 Transverse lie 41220334 O32.2XX9 [id number] Cindy Johns [facility] [address] [address] 08/13/2022 14:11:59 08/13/2022 14:33:05 Routine care 935831098 Z34.90 [id number] [facility] [address] [address] 08/18/2022 12:16:46 08/18/2022 13:42:44 Pre-existing maternal disease complicating [id number] O99.891 O40.9XX0 U07.1 Z86.16 Z3A.36 [id number] Cindy Johns [facility] [address] [place] [address] 08/18/2022 14:34:42 08/18/2022 15:13:52 Routine care [id number] Z34.90 [id number] Kierra Alejandra Bendena [address],[place] [address] 08/25/2022 09:22:59 08/25/2022 18:35:02 Polyhydramnios [id number] O40.3XX0 Z3A.37 [id number] Cindy Johns [facility] [address],[place] [address] 08/25/2022 09:23:59 08/25/2022 10:29:26 Routine care [id number] Z34.90 [id number] Asuncion Watts MD [facility] [address],[place] [address] 08/30/2022 09:30:43 08/31/2022 18:11:25 [id number] [facility] [address] [address] 10/08/2022 11:17:29 10/08/2022 12:17:43 care [id number] Z39.2 [id number] Cindy Johns [facility] [address],[place] [address] 02/23/2023 13:48:53 02/23/2023 14:24:27 Gynecologic examination [id number] Z01.419 Z11.3 Fatigue [id number] R53.83 check labs Changes in skin texture [id number] R23.4 check left breast us [id number] PATRICIA Anne Bendena [address],[place] [address] 08/05/2023 09:52:32 08/05/2023 13:35:04 Contraception care management [id number] Z30.9 Counseled on all BC methodsInt erested in Mirena IUDr/b/a reviewedsh e will RTC with next period for insertion Time spent in visit is a total of 20 mins with at least 50% of visit consisting of counseling and review of plan of care. [id number] PATRICIA Anne Bendena [address],[place] [address] 08/30/2023 11:19:46 08/30/2023 12:20:31 Contraception care management [id number] Z30.9 UPT (-)She has been counseled on all of the r/b/a of placement of an intrauteri ne device that include but are not limited to uterine perforatio n, injury to cervix, vagina, bladder, and bowel.Risk s of bleeding due to injury or increased irregular bleeding due to progestin effect of the device. Risks of infection would be increased within the first 21 days of placement with concomitan t cervicitis . She understand s that the device will need to be removed in this instance due to increased risk of Pelvic inflammato ry disease. Patient is aware she is at higher risk for STD and if contracted she could lose her fertility. Pt is aware that if occurs that she should contact office immediatel y to rule out ectopic which could be life threatenin g. IUD will also need to be removed and this could cause miscarriag e. Patient also informed that in the event her strings are absent or embedded at the time of removal she may need to have the IUD surgically removed. She was informed of the above and properly consented. IUD placed w/o complicati on. Patient should return to office after next period to check for string placement. Patient to expect irregular bleeding but should be seen in the ED if bleeding increases to soaking a pad an hour for at least 2 hours. She verbalized understand ing.RTC for string check in 4-6 weeks Health Concerns Section Related Observation LastModified by Organization Detai ls LastModified Time None Recorded Concern Status LastModified by Organization Details LastModified Time None Recorded Advance Directives Directive N: Payers Encounter Date Sequence Insurance Name Policy Number Policy [place] Covered Member ID [place] Member ID Guarantor Name 10/08/2022 1 [facility] ON OR AFTER 04/23/21 (MEDICAID REPLACEMENT - HMO) Na Dunlap [id number] Na Dunlap 02/23/2023 1 [facility] ON OR AFTER 04/23/21 (MEDICAID REPLACEMENT - HMO) Na Dunlap [id number] Na Dunlap 08/05/2023 1 [facility] ON OR AFTER 04/23/21 (MEDICAID REPLACEMENT - HMO) Na Dunlap [id number] Na Dunlap 08/30/2023 1 [facility] ON OR AFTER 04/23/21 (MEDICAID REPLACEMENT - HMO) Na Dulnap [id number] Na Dunlap Notes Date Note Type Note Provider Name and Address Organization Details Recorded Time 10/08/2022 text/html VisitReported bypatient.Quality:N Context:complicatio ns of : none; complications of labor: none; complications: none; feeding choice: breast; good support from partner/family; resumed menstrual bleeding no Associated Symptoms:no abnormal bleeding; no vaginal discharge; no pelvic pain; no constipation; no fecal incontinence; no dysuria; no urinary incontinence; no fever; no problems; no mastitis; normal mood Contraception Plan:declines contraceptionNotes: doing well, family had flu but getting better now, partner may get vasectomy Cindy Johns CNM [address], [place], [address], [facility] 10/08/2022 12:15:36 02/23/2023 text/html Annual GYNReport ed bypatient.History:n o gynecologic complaints; no change in interval history Menstrual cycle:3 regular cycles, still Vulva:No genital lesion Vagina:Normal vaginal discharge Breast:No breast pain; No breast lump; No nipple discharge Sexual complaints:No sexual complaints; No pain during intercourse; Normal libido Menopausal Symptoms:No menopausal symptoms; Normal vaginal lubrication Psychological symptoms:No depression; No anxiety; No PMDD Preventive measures:Encourage self breast examination; Encourage regular exercise; Encourage no tobacco useNotes: has a vasectomy scheduled. doing well! baby getting big!very fatigued since giving birthrash after mastitis, more change in skin texture, tx 3 weeks ago Cindy Johns CNM [address], [place], [address], [facility] 02/23/2023 14:22:42 08/05/2023 text/html 28yopresents for BC consultwithdrawal/c ondoms currentlyhas had mirena IUD in the past and would like to discuss this PATRICIA Anne [address], [place], [address], [facility] 08/05/2023 13:31:27 08/30/2023 text/html Patient presents for IUD insertion.currently on her period Michellelashanda Ramesh, WHNP [address], [place], [address], [facility] 08/30/2023 12:16:31 OBGyn Episode Ob Episode Information Episode Created Date Number of Fetuses Patient Bloodtype Patient rh Status Prepregnancy Weight lbs Domestic Partner Domestic Partner Phone Father Name Grapple Yarder Operator Status 06/03/20 20 1 CLOSED Fetus Data First Name Last Name Admitted to NICU Weight (g) Sex Living Outcome Pediatric Complications Fetus ID Race Codes Race Delivery Type 3486.76 1704 M Full Term 3712 Vaginal Delivery Neto Calculation Initial Neto Date Initial Exam Date Initial Exam Provider Initial Ultrasound Date Last Menstrual Period Date Ultra Sound Weeks Gestation 0 Eighteen To Twenty Week Neto Update Ultra Sound Date Fundal Height At Umbil Quickening Date Ultra Sound Latest Weeks Gestation Final Neto Confirmed By Final Neto Confirmed Date Final Neto Date Ultra Sound Latest Days Gestation 0 0 Menstrual History Last Menstrual Date Menses Monthly On Bcp Conception Prior Menses Frequency Hcg Plus Date Menarche Onset Age Delivery Information Delivery Date Delivery Type Labor Anesthesia Weeks Gestation Incision Type Labor Labor Length Hrs Delivered By Post Complications Tubal Sterilization Discharge Date Comments 9 39 Discharge Information Feeding Method Contraceptive Method Maternal HG B and HCT Levels Ob Episode Information Episode Created Date Number of Fetuses Patient Bloodtype Patient rh Status Prepregnancy Weight lbs Domestic Partner Domestic Partner Phone Father Name Grapple Yarder Operator Status 06/03/20 1 CLOSED Fetus Data First Name Last Name Admitted to NICU Weight (g) Sex Living Outcome Pediatric Complications Fetus ID Race Codes Race Delivery Type 2721.55 2 M Full Term 3711 Vaginal Delivery Neto Calculation Initial Neto Date Initial Exam Date Initial Exam Provider Initial Ultrasound Date Last Menstrual Period Date Ultra Sound Weeks Gestation 0 Eighteen To Twenty Week Neto Update Ultra Sound Date Fundal Height At Umbil Quickening Date Ultra Sound Latest Weeks Gestation Final Neto Confirmed By Final Neto Confirmed Date Final Neto Date Ultra Sound Latest Days Gestation 0 0 Menstrual History Last Menstrual Date Menses Monthly On Bcp Conception Prior Menses Frequency Hcg Plus Date Menarche Onset Age Delivery Information Delivery Date Delivery Type Labor Anesthesia Weeks Gestation Incision Type Labor Labor Length Hrs Delivered By Post Complications Tubal Sterilization Discharge Date Comments 5 40 hydronep h rosis Discharge Information Feeding Method Contraceptive Method Maternal HG B and HCT Levels Ob Episode Information Episode Created Date Number of Fetuses Patient Bloodtype Patient rh Status Prepregnancy Weight lbs Domestic Partner Domestic Partner Phone Father Name Grapple Yarder Operator Status 06/03/20 20 1 CLOSED Fetus Data First Name Last Name Admitted to NICU Weight (g) Sex Living Outcome Pediatric Complications Fetus ID Race Codes Race Delivery Type 3373.36 3704 M Full Term 3710 Vaginal Delivery Neto Calculation Initial Neto Date Initial Exam Date Initial Exam Provider Initial Ultrasound Date Last Menstrual Period Date Ultra Sound Weeks Gestation 0 Eighteen To Twenty Week Neto Update Ultra Sound Date Fundal Height At Umbil Quickening Date Ultra Sound Latest Weeks Gestation Final Neto Confirmed By Final Neto Confirmed Date Final Neto Date Ultra Sound Latest Days Gestation 0 0 Menstrual History Last Menstrual Date Menses Monthly On Bcp Conception Prior Menses Frequency Hcg Plus Date Menarche Onset Age Delivery Information Delivery Date Delivery Type Labor Anesthesia Weeks Gestation Incision Type Labor Labor Length Hrs Delivered By Post Complications Tubal Sterilization Discharge Date Comments 3 40 Discharge Information Feeding Method Contraceptive Method Maternal HG B and HCT Levels Ob Episode Information Episode Created Date Number of Fetuses Patient Bloodtype Patient rh Status Prepregnancy Weight lbs Domestic Partner Domestic Partner Phone Father Name Grapple Yarder Operator Status 03/10/20 22 1 A Positive 218 CLOSED Fetus Data First Name Last Name Admitted to NICU Weight (g) Sex Living Outcome Pediatric Complications Fetus ID Race Codes Race Delivery Type 3770.48 35 M true Full Term [id number] Vaginal Delivery Problems Problem Notes CF/SMA NEGNIPT NL XY Problem Name Start Date End Date Resolution Snomed Code Not e Unstable lie [id number] COVID-19 2022 [id number] ASA & ser ial growth Polyhydramnios [id number] MIKAELA w as 29, at 33w 25 Neto Calculation Initial Neto Date Initial Exam Date Initial Exam Provider Initial Ultrasound Date Last Menstrual Period Date Ultra Sound Weeks Gestation 09/16/2022 03/10/2022 02/12/2022 12/08/2021 9 Eighteen To Twenty Week Neto Update Ultra Sound Date Fundal Height At Umbil Quickening Date Ultra Sound Latest Weeks Gestation Final Neto Confirmed By Final Neto Confirmed Date Final Neto Date Ultra Sound Latest Days Gestation 0 [email or web address] 03/10/2022 09/14/20 22 0 Pre- Flowsheet Flowsheet Date 03/10/2022 Raymond Score Blood Edema Fundus Height Fundus Units Glucose Ketones Leukocytes Nitrite Labor Signs Protein Cervic Dilation Cervic Effacement Cervic Station 12 Type Weight in lbs Pre/Post Dialysis Refused Weight 216.908191143680 BP Diastolic BP Location Tested BP Systolic BP Type 74 R arm 117 sitting Fetus Heart Rate Present A 157 Fetus Movement Comments this patient is a 26-year-ol d 4 para 3003 at 13 weeks gestation presents for initial care. She has had 3 vaginal births. She has an unremarkable obstetric history. Her medical and surgical history also unremarkable. She is vaccinated. She is given recommendations on the vaccinations. She will begin routine care. She has no complaints today. She has excellent dating. Flowsheet Date 04/02/2022 Raymond Score Blood Edema Fundus Height Fundus Units Glucose Ketones Leukocytes Nitrite Labor Signs Protein Cervic Dilation Cervic Effacement Cervic Station neg none none trace Type Weight in lbs Pre/Post Dialysis Refused Weight 221.299208231963 BP Diastolic BP Location Tested BP Systolic BP Type 69 108 Fetus Heart Rate Present A 156 Fetus Movement A No Comments patient is having some nause a, declines rx at this time precautions reviewed f/u 4 week anatomy scan, Flowsheet Date 05/05/2022 Raymond Score Blood Edema Fundus Height Fundus Units Glucose Ketones Leukocytes Nitrite Labor Signs Protein Cervic Dilation Cervic Effacement Cervic Station Type Weight in lbs Pre/Post Dialysis Refused BP Diastolic BP Location Tested BP Systolic BP Type Fetus Heart Rate Present Fetus Movement Comments Flowsheet Date 05/05/2022 Raymond Score Blood Edema Fundus Height Fundus Units Glucose Ketones Leukocytes Nitrite Labor Signs Protein Cervic Dilation Cervic Effacement Cervic Station neg none none trace Type Weight in lbs Pre/Post Dialysis Refused Weight 221.959467548131 BP Diastolic BP Location Tested BP Systolic BP Type 65 97 Fetus Heart Rate Present Fetus Movement A Yes Comments PATIENT STATES THAT HAVING S OME BH CONTRACTIONS AND CRAMPING. anatomy incomplete, bilateral mild renal pelvisf/u 4 weeks, precautions reviewed Flowsheet Date 06/02/2022 Raymond Score Blood Edema Fundus Height Fundus Units Glucose Ketones Leukocytes Nitrite Labor Signs Protein Cervic Dilation Cervic Effacement Cervic Station Type Weight in lbs Pre/Post Dialysis Refused BP Diastolic BP Location Tested BP Systolic BP Type Fetus Heart Rate Present Fetus Movement Comments Flowsheet Date 06/02/2022 Raymond Score Blood Edema Fundus Height Fundus Units Glucose Ketones Leukocytes Nitrite Labor Signs Protein Cervic Dilation Cervic Effacement Cervic Station neg none none trace Type Weight in lbs Pre/Post Dialysis Refused Weight 223.947011465674 BP Diastolic BP Location Tested BP Systolic BP Type 69 104 Fetus Heart Rate Present Fetus Movement A Yes Comments efw 41% minimally dilated re nal pelvis bilaterally anatomy incomplete f/u 4 weeks, precautions reviewed also plan gct at that visit Flowsheet Date 06/30/2022 Raymond Score Blood Edema Fundus Height Fundus Units Glucose Ketones Leukocytes Nitrite Labor Signs Protein Cervic Dilation Cervic Effacement Cervic Station Type Weight in lbs Pre/Post Dialysis Refused BP Diastolic BP Location Tested BP Systolic BP Type Fetus Heart Rate Present Fetus Movement Comments Flowsheet Date 06/30/2022 Raymond Score Blood Edema Fundus Height Fundus Units Glucose Ketones Leukocytes Nitrite Labor Signs Protein Cervic Dilation Cervic Effacement Cervic Station neg none none trace Type Weight in lbs Pre/Post Dialysis Refused Weight 229.436788280471 BP Diastolic BP Location Tested BP Systolic BP Type 74 114 Fetus Heart Rate Present Fetus Movement A Yes Comments patient states that had some vaginal odor on Tuesday and having some back pain. elevated mikaela 29 cm rpt 2 weeks efw 65%, precautions reviewed, ok for tdap Flowsheet Date 07/14/2022 Raymond Score Blood Edema Fundus Height Fundus Units Glucose Ketones Leukocytes Nitrite Labor Signs Protein Cervic Dilation Cervic Effacement Cervic Station Type Weight in lbs Pre/Post Dialysis Refused BP Diastolic BP Location Tested BP Systolic BP Type Fetus Heart Rate Present Fetus Movement Comments Flowsheet Date 07/14/2022 Raymond Score Blood Edema Fundus Height Fundus Units Glucose Ketones Leukocytes Nitrite Labor Signs Protein Cervic Dilation Cervic Effacement Cervic Station neg none none trace Type Weight in lbs Pre/Post Dialysis Refused Weight 232.53399716565 BP Diastolic BP Location Tested BP Systolic BP Type 69 126 Fetus Heart Rate Present Fetus Movement A Yes Comments patient is having some contr actions. discussed polyhydramnios, precautions, call for preadmit ok for tdap, f/u visit and US 2 weeks Flowsheet Date 07/27/2022 Raymond Score Blood Edema Fundus Height Fundus Units Glucose Ketones Leukocytes Nitrite Labor Signs Protein Cervic Dilation Cervic Effacement Cervic Station Type Weight in lbs Pre/Post Dialysis Refused BP Diastolic BP Location Tested BP Systolic BP Type Fetus Heart Rate Present Fetus Movement Comments Flowsheet Date 07/27/2022 Raymond Score Blood Edema Fundus Height Fundus Units Glucose Ketones Leukocytes Nitrite Labor Signs Protein Cervic Dilation Cervic Effacement Cervic Station neg trace none trace Type Weight in lbs Pre/Post Dialysis Refused Weight 237.904685245985 BP Diastolic BP Location Tested BP Systolic BP Type 72 111 Fetus Heart Rate Present A 145 Fetus Movement A Yes Comments Doing fine. US today 57%, AF I 25, TRANSVERSE. Add US 35-36w, if still transverse, discussed ECV. Will do Tdap soon. Flowsheet Date 08/13/2022 Raymond Score Blood Edema Fundus Height Fundus Units Glucose Ketones Leukocytes Nitrite Labor Signs Protein Cervic Dilation Cervic Effacement Cervic Station neg none 36 none trace Type Weight in lbs Pre/Post Dialysis Refused Weight 238.475006167353 BP Diastolic BP Location Tested BP Systolic BP Type 72 114 Fetus Heart Rate Present A 155 Present Fetus Movement A Yes Comments vertex by us today, keep us next week, doing well, gbs today, precautions reviewed Flowsheet Date 08/18/2022 Raymond Score Blood Edema Fundus Height Fundus Units Glucose Ketones Leukocytes Nitrite Labor Signs Protein Cervic Dilation Cervic Effacement Cervic Station Type Weight in lbs Pre/Post Dialysis Refused BP Diastolic BP Location Tested BP Systolic BP Type Fetus Heart Rate Present Fetus Movement Comments Flowsheet Date 08/18/2022 Raymond Score Blood Edema Fundus Height Fundus Units Glucose Ketones Leukocytes Nitrite Labor Signs Protein Cervic Dilation Cervic Effacement Cervic Station neg none none trace Type Weight in lbs Pre/Post Dialysis Refused Weight 242.382626992555 BP Diastolic BP Location Tested BP Systolic BP Type 76 111 Fetus Heart Rate Present Fetus Movement A Yes Comments efw 93%, mikaela 29.5 cm, polyhy dramnios, precautionf/us reviewed gbs was done, f/u fluid one week Flowsheet Date 08/25/2022 Raymond Score Blood Edema Fundus Height Fundus Units Glucose Ketones Leukocytes Nitrite Labor Signs Protein Cervic Dilation Cervic Effacement Cervic Station Type Weight in lbs Pre/Post Dialysis Refused BP Diastolic BP Location Tested BP Systolic BP Type Fetus Heart Rate Present Fetus Movement Comments Flowsheet Date 08/25/2022 Raymond Score Blood Edema Fundus Height Fundus Units Glucose Ketones Leukocytes Nitrite Labor Signs Protein Cervic Dilation Cervic Effacement Cervic Station neg none none trace Type Weight in lbs Pre/Post Dialysis Refused Weight 242.397763200042 BP Diastolic BP Location Tested BP Systolic BP Type 76 111 Fetus Heart Rate Present Fetus Movement A Yes Comments patient is having back /leg pain, contractions, and pressure. polyhydramnios, breech, vtx last week, unstable lie, pt would like external version, reviewed risk of emergency , risk of placental abruption, pt aware will schedule for tuesday and plan IOL at 39 weeks. precautions reviewed Flowsheet Date 08/30/2022 Raymond Score Blood Edema Fundus Height Fundus Units Glucose Ketones Leukocytes Nitrite Labor Signs Protein Cervic Dilation Cervic Effacement Cervic Station Type Weight in lbs Pre/Post Dialysis Refused BP Diastolic BP Location Tested BP Systolic BP Type Fetus Heart Rate Present Fetus Movement Comments Flowsheet Date 08/30/2022 Raymond Score Blood Edema Fundus Height Fundus Units Glucose Ketones Leukocytes Nitrite Labor Signs Protein Cervic Dilation Cervic Effacement Cervic Station Type Weight in lbs Pre/Post Dialysis Refused Weight 246.643693331770 BP Diastolic BP Location Tested BP Systolic BP Type 77 126 Fetus Heart Rate Present A 135 Fetus Movement A Yes Comments Doing ok. She feels baby tur ns from vertex to transverse multiple times per day. On today's US is vertex. MIKAELA 24. WIll continue to monitor. Pt is aware of risks of cord prolapse if SROM while transverse and is aware of need for CS if not vertex. Possible ECV at 39w followed by IOL with binder. Flowsheet Date 10/08/2022 Raymond Score Blood Edema Fundus Height Fundus Units Glucose Ketones Leukocytes Nitrite Labor Signs Protein Cervic Dilation Cervic Effacement Cervic Station Type Weight in lbs Pre/Post Dialysis Refused Weight 215.385815763596 BP Diastolic BP Location Tested BP Systolic BP Type 74 113 Fetus Heart Rate Present Fetus Movement Comments Menstrual History Last Menstrual Date Menses Monthly On Bcp Conception Prior Menses Frequency Hcg Plus Date Menarche Onset Age 0212/08/2021 Genetic Screening And Infection History Question Response Note Mental Retardation/Autism false Patient's Age Will Be 35 Years Or Older At Estim ated Date of Delivery false Thalassemia ([place], Citizen Of [place], Mediterranean, Or Background): MCV < 80 false Neural Tube Defect (Meningomyelocele, Spina Bifi da, Or Anencephaly) false Congenital Heart Defect false Down Syndrome false Kvng-Sachs (eg, Taoism, Cajun, Arabic-Lajas) f alse Livia Disease false Sickle Cell Disease Or Trait () false Hemophilia Or Other Blood Disorders false Muscular Dystrophy false Cystic Fibrosis false Clarion's Chorea false Intellectual Disability/Autism false If Yes, Was Person Tested For Fragile X? false Other Inherited Genetic Or Chromosomal Disorder false Maternal Metabolic Disorder (eg, Type 1 Diabetes , PKU) false Patient Or Baby's Father Had A Child With Defects Not Listed Above false Recurrent Loss, Or A Stillbirth false Medications (including Suppl ements, Vitamins, Herbs, OTC Drugs), Illicit/Recreational Drugs, Alcohol false If Yes, Agent(s) And Strength/Dosage false Any Other Genetic History false Live With Someone With TB Or Exposed To TB false Patient Or Partner Has History Of Genital Herpes false Rash Or Viral Illness Since Last Menstrual Perio d false History Of STD, Gonorrhea, Chlamydia, HPV, Syphi lis false Other Infection History false History of HIV false History of Hepatitis false Prior GBS-infected child false Hemoglobinopathy Or Carrier false Other Structural Defect false Recent Travel History Outside of Country false Delivery Information Delivery Date Delivery Type Labor Anesthesia Weeks Gestation Incision Type Labor Labor Length Hrs Delivered By Post Complications Tubal Sterilization Discharge Date Comments 2 Induce d Regional-Ep idural 39.1 false Cindy Johns CNM poly Discharge Information Feeding Method Contraceptive Method Maternal HG B and HCT Levels
--- NOTE | 2025-01-21 08:42 | ED_ITS ---
HPI - URI/Sore Throat General Chief Complaint: Upper Respiratory Infection Stated Complaint: sore throat History of Present Illness HPI Narrative: 29-year-old female presented with complaint of sore throat x2 days. endorses associated headache, body aches, bilateral ear pain with swallowing and chills. Denies sob, wheezing, n/v/d. Related Data Home Medications ?Medication ?Instructions ?Recorded ?Confirmed ?Last Taken ?Type levonorgestrel (Mirena) See Rx Instructions .Route .COMPLEX 11/28/23 11/28/23 Unknown History Allergies Allergy/AdvReac Type Severity Reaction Status Date / Time Penicillins Allergy Mild hives Verified 01/21/25 08:34 Review of Systems Review of Systems: CONSTITUTIONAL: reports body aches, fever, chills EYES: Denies visual changes, redness, or discharge. ENT: reports sore throat rhinorrhea, otalgia. CARDIOVASCULAR: Denies chest pain, palpitations, or edema. RESPIRATORY: Denies dyspnea. GASTROINTESTINAL: Denies abdominal pain, nausea, vomiting, or diarrhea. SKIN: Denies rash, itching, or wounds. MUSCULOSKELETAL: Denies back pain, joint pain, or myalgia. NEUROLOGIC: Denies headache PMFSH Social History Social History Smoking status: Never smoker Second hand tobacco smoke exposure: No Lack of Transportation: No Lack of Food: Never True Current Housing: I Have Housing Concerned About Future Housing: No Difficulty Paying Gas/Electric Bills: No Difficulty Paying for Meds: No Currently Unemployed: No Education: High School Diploma/GED Difficulty w/ Childcare or Family Care: No Spiritual care concerns: No Exam Narrative: GENERAL: well-appearing, no acute distress. EYES: conjunctivae clear ENT: Mucous membranes moist. TM pearly wills with normal light reflex bilaterally; no tragal tenderness. Oropharynx severely erythematous without lesions. Tonsils enlarged 2+ and without exudate. No drooling, no hoarseness, no trismus, uvula midline. No tripod positioning, hot potato voice, or soft palate swelling. NECK: Supple. bilaterally anterior cervical lymphadenopathy CHEST: Clear to auscultation, breath sounds equal. No respiratory distress, speaks in full sentences. HEART: Regular rate and rhythm. No murmur heard. SKIN: Warm, dry, no rash. NEURO: Alert and oriented x3. Course Course Emergency Course: Patient is aware of diagnosis, understands and agrees to treatment plan. Anticipatory guidance given. Patient agrees to follow-up as directed and is aware of reasons to seek care at the emergency department. Portions of this record may have been created with voice recognition software Level of Care: Express Care Visit Vital Signs Vital signs: Vital Signs Temperature 97.3 F L 01/21/25 08:34 Pulse Rate 93 01/21/25 08:34 Respiratory Rate 18 01/21/25 08:34 Blood Pressure 112/50 L 01/21/25 08:34 Pulse Oximetry 99 01/21/25 08:34 Oxygen Delivery Room Air 01/21/25 08:34 Temperature 97.3 F L 01/21/25 08:34 Pulse Rate 93 01/21/25 08:34 Respiratory Rate 18 01/21/25 08:34 Blood Pressure 112/50 L 01/21/25 08:34 Pulse Oximetry 99 01/21/25 08:34 Oxygen Delivery Room Air 01/21/25 08:34 MDM - URI/Sore Throat MDM Narrative Medical decision making narrative: POS strep result reviewed with pt. Advise supportive treatments. Patient is appropriate for outpatient treatment and follow-up. Differential Diagnosis Differential diagnosis: Likely upper respiratory infection, viral infection and pharyngitis Lab Data Labs: Lab Results 01/21/25 Range/Units 08:50 POC Grp A Strep Screen Positive (Negative) Discharge Plan Discharge Clinical Impression: Strep pharyngitis Patient Disposition: Home, Self-Care Condition: Stable Instructions: Antibiotic Form, Strep Throat (ED) Additional Instructions: - Take the antibiotic as directed. Fever and sore throat typically resolve within one to three days. Most patients can return to work, after 12 to 24 hours of antibiotic therapy, provided you are fever free and otherwise well. -Eat and drink things that are easy to swallow, like soft foods, cool liquids, tea with honey, or popsicles . -Salt water gargles and/or may use topical anesthetic ( Chloraseptic spray) or lozenges to relieve dryness or throat pain -Alternate Tylenol and ibuprofen as needed for pain and fever as directed. -Frequent hand washing or hand renovator machine operator is one of the best ways to prevent spread of infection. Throw away the toothbrush after 24hours of antibiotic. -Follow up with primary care provider in 2-3 days if condition is not improving -Go to the ER if you have trouble breathing, cannot drink enough fluids, have muffled voice or drooling, difficulty opening your mouth, or severe swelling. Patient Language: Bhutanese Prescriptions: New azithromycin [Zithromax Z-Yevgeniy] 250 mg tablet See Rx Instructions .ROUTE .COMPLEX Qty: 6 0RF Rx Instructions: For 250 mg dose pack: take 500 mg today (day 1), then 250 mg for 4 days (days 2-5) No Action tobramycin 0.3 % drops 1 drp LEFT EYE Q4H 7 Days Qty: 5 0RF prednisone 20 mg tablet 40 mg PO DAILY 5 Days Qty: 10 0RF azithromycin 250 mg tablet See Rx Instructions .ROUTE .COMPLEX Qty: 6 0RF Rx Instructions: For 250 mg dose pack: take 500 mg today (day 1), then 250 mg for 4 days (days 2-5) Mirena 21 mcg/24 hours (8 yrs) 52 mg Intrauterine Device See Rx Instructions .ROUTE .COMPLEX Rx Instructions: 21 mcg intrauterinely Follow-up/Referrals: Jaya,Diana Johnston. [Primary Care Provider] -
[2025-01-21 09:00] LABS: EDSTREPNEGPOS1 Positive (Negative)
[2025-01-21 09:11] LABS: EDCOVIDSCREEN Negative (Negative); EDINFLUASCREEN Negative (Negative); EDINFLUBSCREEN Negative (Negative)
== END 2025-01-21 09:08 | disposition home or self-care (01) ==
PROVIDERS: Emergency Provider Nurse Practitioner Family; PCP Internal Medicine Infectious Disease
DX: J02.0 Streptococcal pharyngitis (principal); Z20.822 Contact with and (suspected) exposure to COVID-19
CPT/HCPCS: 87426; 87804; 87880; 99213; G0463